=== PATIENT | female | born 2005 ===

== ENCOUNTER 2025-02-23 18:30 | Emergency (ER) | payer OTHER ==
[~2025-02-23] VITALS: Ht 162.6 cm; Wt 80.2 kg
[2025-02-23 21:53] VITALS: BP 120/80; TEMP 97.3; O2SAT 100
== END 2025-02-23 22:38 | disposition left against medical advice (07) ==
LOC: M ED 18:30
DX: Z53.21 Procedure and treatment not carried out due to patient leaving prior to being seen by health care provider (principal)